=== PATIENT | male | born 1980 | race Caucasian/White ===

== ENCOUNTER 2022-02-04 20:33 | Emergency (ER) | payer MEDICARE, OTHER ==
[~2022-02-04 20:33] MED LIST: ASPIR 8181 MG PO; DOK250 MG PO; FLEXERIL 10 MG10 MG PO; NAPROSYN500 MG PO; PERCOCET 5-3251 EACH PO; PHENERGAN 12.12.5 M1 PO
[2022-02-04 20:57] LABS: HEMOGLOBIN 15.6 gm/dl (14.0-17.5); RED BLOOD COUNT 4.86 M/UL (4.20-5.50); WHITE BLOOD COUNT 11.1 K/UL (4.5-11.0)
[2022-02-04 21:18] LABS: BUN/CREATININE RATIO 17 (0-10)
== END 2022-02-05 01:20 | disposition short-term general hospital (02) ==
LOC: ER1 20:33
PROVIDERS: Family Medicine
DX: T23.201A Burn of second degree of right hand, unspecified site, initial encounter (principal); S62.511B Displaced fracture of proximal phalanx of right thumb, initial encounter for open fracture; F31.9 Bipolar disorder, unspecified; F41.9 Anxiety disorder, unspecified; Z88.2 Allergy status to sulfonamides; Z88.8 Allergy status to other drugs, medicaments and biological substances; X08.8XXA Exposure to other specified smoke, fire and flames, initial encounter
CPT/HCPCS: 73130; 80053; 85025; 90471; 90715; 96374; 96375; 96376; 99284; J0690; J1170; J1885; J2060; J2405; J3010